=== PATIENT | male | born 1995 | race Asian ===

== ENCOUNTER 2017-12-16 00:38 | Emergency (ER) | payer OTHER, BC ==
[~2017-12-16] VITALS: Ht 167.6 cm; Wt 71.9 kg
[2017-12-16 00:43] VITALS: TEMP 37; Ht 167.6 cm; Wt 71.9 kg
[2017-12-16] MEDS ORDERED: OXYCODONE IR HOME PACK PO ONE (01:30)
[2017-12-16 01:59] VITALS: BP 133/100; PULSE 90; O2SAT 100
--- NOTE | 2017-12-16 06:13 | EMERGENCY ROOM VISIT NOTE ---
ED Visit Note First contact with patient: 00:55 CHIEF COMPLAINT: Elbow pain HISTORY OF PRESENT ILLNESS: This 22-year-old patient presents to the emergency department complaining of pain in the left elbow fell ice skating tonight. The patient rates their pain as throbbing and 5/10. The patient has taken nothing for relief of the pain. The patient has not had previous fractures to this elbow. The patient does not have any numbness or tingling. The patient denies any other injuries. REVIEW OF SYSTEMS: A 6 system review of systems was completed with positives and pertinent negatives listed in the HPI. ALLERGIES: None MEDICATIONS: none PMH: none SOCIAL HISTORY: No drug use PHYSICAL EXAM: Vital Signs: Reviewed Nurse's notes, vital signs stable. GENERAL : Pleasant male, in no acute distress, well-developed, well-nourished. SKIN: The skin was without rashes, erythema, edema, warmth, or bruising. Capillary reflex less than 3 seconds. MUSCULOSKELETAL: The patient is holding their elbow. There is tenderness over the left elbow. There is tenderness with range of motion of the left elbow. There is no tenderness of the shoulder, wrist, or hand. The patient is able to give a thumbs up, make an OK sign, and a #3 with their fingers. Radial pulse 2+. NEURO: Patient was alert and oriented to person place and time. Normal sensation to light and sharp touch. EMERGENCY DEPARTMENT COURSE: I examined the patient. An x-ray of the left elbow was reviewed myself and my attending and shows a elbow fracture of the ulna. The patient was placed in a long-arm Ortho-Glass splint under my direction and the position was satisfactory. Neurovascular status was rechecked and intact. Patient was then placed in a sling and neurovascular status was rechecked after placement is intact. Patient was advised to follow- up with orthopedics tomorrow for definitive care for his injury or here in the ER sooner for severe pain, numbness, tingling, worsening signs or symptoms or as needed. The patient was discharged home in stable condition. Differential diagnosis includes sprain, strain, fracture, dislocation and other etiologies were considered. DIAGNOSIS: left elbow fracture, initial evaluation DISCHARGE INSTRUCTIONS & TREATMENT: As below Vital Signs Date Time Temp Pulse Resp B/P (MAP) Pulse Ox O2 Delivery O2 Flow Rate FiO2 12/16/17 01:59 90 18 133/100 100 12/16/17 00:43 37.0 84 20 158/102 99 Room Air Medications Administered Medications (Trade) Dose Ordered Sig/Eloina Route Start Time Stop Time Status Last Admin Dose Admin Oxycodone HCl (Roxicodone Immediate Rel 5MG Home Pack) 1 homepack UD ONCE PO 12/16/17 01:30 12/16/17 01:31 DC 12/16/17 01:59 1 HOMEPACK Departure Information Impression Primary Impression: Left elbow fracture Dispostion Home / Self-Care Condition GOOD Referrals Remigio Gaspar, DO Forms HOME CARE DOCUMENTATION FORM, IMPORTANT VISIT INFORMATION Patient Instructions [facility], ED Fx Elbow Additional Instructions Oxycodone (OxyIR) 5mg: Take 1-2 pills every four hours for breakthrough pain. Avoid alcohol, operating machinery or dangerous equipment, working on ladders or roofs, DRIVING, or situations where being under the influence may be dangerous. It is recommended to use an yabw-miz-soyfoxx stool softener such as Colace, 100mg twice daily while taking this medication to avoid constipation. Ibuprofen(Motrin, Advil) may be used for fever or pain. Use 600mg every six hours as needed. Take with food. Avoid using more than 2400mg in a 24 hour period. Do not use 2400mg per day for more than three consecutive days without physician direction. Prolonged inappropriate use can lead to stomach upset or ulcers. This medication can be taken if you need to drive, work, or perform activities which may be dangerous when taking narcotic pain medication. (AND/OR) Acetaminophen(Tylenol) may be used for fever or pain. Use 1000mg every six hours as needed. Avoid using more than 3000mg in a 24 hour period. This medication can be taken if you need to drive, work, or perform activities which may be dangerous when taking narcotic pain medication. Ice compresses for 20 minutes at a time four times daily for 2-3 days. Use the sling as instructed. Remove your arm from the sling 4-6 times a day and move all the joints around to keep them loose. Rest and elevate your injury. Do not get the splint wet. If your splint feels excessively tight, you have worsening pain, develop numbness or tingling, or your digits appear blue, loosen the ephraim wrap. Then reapply the ephraim wrap gently without removing the splint. If your symptoms are not quickly relieved return to the ER for re- evaluation. Continue current medications. Return to the ER immediately for any numbness, tingling, severe pain, extreme swelling in the extremity or as needed. Call Orthopedics tomorrow to arrange follow up for your injury.
--- NOTE | 2017-12-16 09:48 | DIAGNOSTIC IMAGING REPORT ---
LEFT ELBOW 3 VIEWS CLINICAL HISTORY: Fall with left elbow pain. FINDINGS: 3 views of left elbow are obtained. No prior studies are available for comparison at the time of dictation. The skeletal structures are well mineralized. There is a nondistracted fracture of the left radial head. No additional fracture is seen. There is associated elbow joint effusion. The overlying soft tissues are normal in appearance. IMPRESSION: Nondistracted radial head fracture with associated elbow joint effusion. Electronically signed by: Nico Guardado M.D. 12/16/2017 9:46 AM Dictated Date/Time: 12/16/2017 9:46 AM
== END 2017-12-16 02:00 | disposition home or self-care (01) ==
LOC: C.EDB 00:41 → C.EDC 02:00
DX: S52.002A Unspecified fracture of upper end of left ulna, initial encounter for closed fracture (principal); W18.30XA Fall on same level, unspecified, initial encounter; Y93.21 Activity, ice skating; Y92.330 Ice skating rink (indoor) (outdoor) as the place of occurrence of the external cause